=== PATIENT | male | born 1975 | race Caucasian/White ===

== ENCOUNTER 2019-10-16 10:51 | Emergency (ER) | payer BC, SELFPAY ==
[2019-10-16 10:52] VITALS: BP 152/111; PULSE 76; RESP 18; TEMP 36.4; O2SAT 100; BMI 28.1
--- NOTE | 2019-10-16 11:04 | ED_ITS ---
Entered by Erma Cortes, acting as scribe for HPI - Syncope General: Chief Complaint: General Medical Stated Complaint: blurred vision, light headed Time Seen by Provider: 10/16/19 11:08 Source: patient, family and EMS Mode of arrival: EMS Limitations: no limitations History of Present Illness: HPI narrative: 44 yo male presents with elevated blood pressure and tingling in bilateral hands. 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 pt was concerned he was having a stroke. pt had blurred vision in bialteral eyes. per spouse the pt noticed his blood pressure was high and the symptoms started and he has a history of anxiety.pt stated that sudden movement makes the dizziness worse and nothing makes this better. pt denies any other symptoms at this time. 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 ) Prodromal symptoms: vision changes and lightheaded Witnessed: Yes - by Other (spouse) Context: at rest, standing up and other (sudden movement) Injuries sustained associated with event: none Associated symptoms: Reports lightheadedness and other (tingling in bilateral hands, elevated blood pressure); Deny abdominal pain, fever(s), headache(s), nausea or vertigo Treatments prior to arrival: none Review of Systems Const: Denies: fever, chills, body aches, fatigue, malaise or night sweats ENMT: Denies: throat pain, oral sores/lesions, dental pain, nasal discharge or nasal congestion Card: Reports: lightheadedness Resp: Denies: shortness of breath, productive cough, non-productive cough or wheezing GI: Denies: abdominal pain, nausea, vomiting, vomiting blood, coffee grounds in vomit, difficulty swallowing, heartburn/indigestion, diarrhea, constipation, cramping, blood in stool or black tarry stool : Denies: flank pain, difficulty urinating, painful urination, urinary frequency, urinary urgency, urinary incontinence or blood in urine Musc: Denies: neck pain, back pain, extremity pain, extremity swelling, joint pain or joint swelling Skin/Breast: Denies: rash, itching or redness Neuro: Denies: headache, numbness in extremities, weakness in extremities, changes in sensation, lack of coordination, difficulty walking, frequent falls, vertigo or confusion Psych: Denies: depression, loss of interest, visual hallucinations, auditory hallucinations, suicidal ideation or homicidal ideation Endo: Denies: excessive urination, excessive thirst, tired all the time or cold intolerance Jerome/Lymph: Denies: easy bruising, easy bleeding, petechiae, enlarged lymph nodes or tender lymph nodes PFSH ED PFSH: Statuses (acute, chronic, etc) shown below reflect problem list status as previously entered and may not be historically accurate Social History (Updated 10/16/19 @ 09:27 by Leona Chris LPN) Smoking and tobacco status: former smoker Second hand smoke exposure: No Smoking risk assessment/counseling performed?: No Alcohol intake: never Desire information about alcohol rehabilitation?: No Counseling given: No Desire information about substance/drug rehabilitation?: No Counseling given: No Physical Exam Const: COMMON NORMALS: average body habitus, oriented x3 and alert GENERAL APPEARANCE: cooperative, comfortable, well kempt and well developed NUTRITIONAL APPEARANCE: obese ORIENTATION/CONSCIOUSNESS: Yes awake, Yes oriented to person and Yes oriented to place HENMT: COMMON NORMALS: normocephalic, head/scalp atraumatic, EAC's normal, TM's normal bilaterally, external nose normal, moist oral mucous membranes and oropharynx normal HEAD & SCALP: normocephalic and atraumatic NOSE: external nose normal EXTERNAL AUDITORY CANAL: EAC's normal TYMPANIC M EMBRANE: TM's normal bilaterally MOUTH: oral and palatal mucosa normal, lip normal and tongue normal THROAT: posterior oropharynx normal and tonsils normal Eye: COMMON NORMALS: PERRL, EOMs intact bilaterally, conjunctivae normal and no scleral icterus CONJUNCTIVA: Yes conjunctivae normal PUPIL: Yes PERRL Neck/C-Spine: COMMON NORMALS: full ROM, no lymphadenopathy, supple, no meningeal signs and thyroid normal THYROID: thyroid normal and asymmetrical Lymph: LYMPHATIC: no lymphadenopathy noted Resp: COMMON NORMALS: normal respiratory effort, no retractions, no use of accessory muscles and clear to auscultation bilaterally AUSCULTATION: clear to auscultation bilaterally Cardio: COMMON NORMALS: regular rate and regular rhythm RATE: regular rate RHYTHM: regular rhythm HEART SOUNDS: no murmurs GI: COMMON NORMALS: normal to inspection, nondistended, normoactive bowel sounds, soft to palpation and no hepatosplenomegaly PALPATION: Yes soft and Yes no hepatosplenomegaly : COMMON NORMALS: Yes no CVA tenderness BLADDER/KIDNEY EXAM: Yes no CVA tenderness Back/Pelvis: COMMON NORMALS: no CVA tenderness LUMBAR SPINE/LOWER BACK: Yes normal to inspection Extremity: COMMON NORMALS: no clubbing, cyanosis or edema, no calf tenderness and no pedal edema Neuro: COMMON NORMALS: oriented x3 SENSORIUM/ORIENTATION: Yes alert, Yes oriented to person and Yes oriented to place MENINGEAL SIGNS: Yes no meningeal signs Psych: APPEARANCE: Yes well kempt Skin: COMMON NORMALS: no rashes or lesions noted and skin turgor normal GENERAL SKIN EXAM: no rashes or lesions noted and turgor normal Course ED course: Reviewed findings with the patient. He has no focal on exam neurologic deficits. His blood pressure is essentially normal at this point I would recommend adding changing any of his medications. Recommend he follow-up with his primary care doctor they can consider further evaluation such as carotid echo or MRI of the head do recommend baby aspirin daily Vital Signs: Vital signs: Vital Signs Temperature 97.6 F 10/16/19 10:52 Pulse Rate 75 10/16/19 14:42 Respiratory Rate 16 10/16/19 14:42 Blood Pressure 120/88 10/16/19 14:42 Pulse Oximetry 97 10/16/19 14:42 MDM - Syncope Lab Data: Labs: Lab Results 10/16/19 10/16/19 10/16/19 Range/Units 11:28 11:28 11:28 WBC 10.8 H (4.0-10.0) 10^3/ uL RBC 5.63 H (4.1-5.3) 10^6/u L Hgb 16.1 (11.7-16.6) g/dL Hct 46.1 (42.0-52.0) % MCV 81.9 (80-94) fL MCH 28.6 (28.0-34.0) pg MCHC 34.9 (30.0-36.0) g/dL RDW 12.5 (12.1-15.1) % Plt Count 323 (130-400) 10^3/c mm MPV 9.7 (7.4-10.4) fL Neut % (Auto) 76.5 % Lymph % (Auto) 16.5 % Major % (Auto) 6.0 % Eos % (Auto) 0.3 % Baso % (Auto) 0.4 % Neut # (Auto) 8.2 H (1.8-7.7) 10^3/u L Lymph # (Auto) 1.8 (0.8-4.8) 10^3/u L Major # (Auto) 0.7 (0.2-0.9) 10^3/u L Eos # (Auto) 0.0 (0.0-0.8) 10^3/u L Baso # (Auto) 0.0 (0.0-0.1) 10^3/u L Nucleated RBC % (a uto) 0 % Nucleated RBCs # 0.0 /100WBC Sodium 139 (136-145) mmol/L Potassium 4.0 (3.5-5.1) mmol/L Chloride 103 (98-107) mmol/L Carbon Dioxide 21 L (22-29) mmol/L Anion Gap 19.0 (5-19) BUN 16 (6-20) mg/dL Creatinine 1.0 (0.7-1.2) mg/dL GFR Calculation 80.4 L (90-130) mL/min Glucose 129 H (74-109) mg/dL Calcium 11.1 H (8.6-10.0) mg/Dl Total Bilirubin 1.1 (0.15-1.2) mg/dL AST 32 (0-40) U/L ALT 44 H (0-41) U/L Alkaline Phosphata se 74 (40-130) IU/L Troponin T Baselin e 13 (0-15) ng/mL Troponin T 120 Min [place] (0-15) ng/mL Delta Troponin T (0-10) ABS# Total Protein 7.6 (6.6-8.7) g/dL Albumin 5.4 H (3.5-5.2) g/dL Globulin 2.2 (1.3-4.6) g/dL 10/16/19 Range/Units 13:18 WBC (4.0-10.0) 10^3/ uL RBC (4.1-5.3) 10^6/u L Hgb (11.7-16.6) g/dL Hct (42.0-52.0) % MCV (80-94) fL MCH (28.0-34.0) pg MCHC (30.0-36.0) g/dL RDW (12.1-15.1) % Plt Count (130-400) 10^3/c mm MPV (7.4-10.4) fL Neut % (Auto) % Lymph % (Auto) % Major % (Auto) % Eos % (Auto) % Baso % (Auto) % Neut # (Auto) (1.8-7.7) 10^3/u L Lymph # (Auto) (0.8-4.8) 10^3/u L Major # (Auto) (0.2-0.9) 10^3/u L Eos # (Auto) (0.0-0.8) 10^3/u L Baso # (Auto) (0.0-0.1) 10^3/u L Nucleated RBC % (a uto) % Nucleated RBCs # /100WBC Sodium (136-145) mmol/L Potassium (3.5-5.1) mmol/L Chloride (98-107) mmol/L Carbon Dioxide (22-29) mmol/L Anion Gap (5-19) BUN (6-20) mg/dL Creatinine (0.7-1.2) mg/dL GFR Calculation (90-130) mL/min Glucose (74-109) mg/dL Calcium (8.6-10.0) mg/Dl Total Bilirubin (0.15-1.2) mg/dL AST (0-40) U/L ALT (0-41) U/L Alkaline Phosphata se (40-130) IU/L Troponin T Baselin e (0-15) ng/mL Troponin T 120 Min [place] 10.97 (0-15) ng/mL Delta Troponin T -2.03 L (0-10) ABS# Total Protein (6.6-8.7) g/dL Albumin (3.5-5.2) g/dL Globulin (1.3-4.6) g/dL Imaging Data^: CT Head: Radiologist's impression: [address] [address] [address] Scan Report Signed Patient: Mj Tan #: [id number] : 1975Acct#:[id number] Age/Sex: 44 / MADM Date: 10/16/19 Loc: ERRoom/Bed: Attending Dr: Ordering Provider/Ordering MD: Toby Medina DO Date of Service: 10/16/19 Procedure(s): CT head wo con* [id number] Accession Number(s): [id number] Report Number: [id number] WS: [id number] CT HEAD TECHNIQUE: Noncontrast CT of the head obtained from the skullbase to the vertex. CLINICAL INFORMATION: facial numbness, arm numbness COMPARISON: DLP: 785.[address] scans at [facility] use at least one of these dose optimization techniques: automated exposure control; mA and/or kV adjustment per patient size (includes targeted exams where dose is matched to clinical indication); or iterative reconstruction. FINDINGS: No evidence of intracranial hemorrhage or mass effect. Ventricular system and basal cisterns are patent. No extra-axial fluid collections. No evidence of mass or mass effect. Normal gil-white differentiation. Paranasal sinuses and mastoid air cells are well aerated. . 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 Notified Toby Medina DO at 10/16/2019 1:[address]/CT head wo con* [id number] IMPRESSION: 1. No evidence of intracranial hemorrhage or mass effect. 2. No acute intracranial findings. Dictated By:Brayan Farah MD Signed By:Brayan Farah MDSigned Date/Time:10/16/19 1305 DD/ 1300 CXR: Radiologist's impression: [place] [address] XRay Report Signed Patient: Mj Tan #: [id number] : 1975Acct#:[id number] Age/Sex: 44 / MADM Date: 10/16/19 Loc: ERRoom/Bed: Attending Dr: Ordering Provider/Ordering MD: Toby Medina DO Date of Service: 10/16/19 Procedure(s): XR chest 1V portable [id number] Accession Number(s): [id number] Report Number: [id number] WS: [id number] Portable AP upright chest, 10/16/2019 Clinical Data: Syncope Comparison: Portable chest, 08/23/2019. Findings: No nodules, masses or effusions are seen. The heart is normal. The pulmonary vascularity is not increased. No pneumonia or pneumothorax is seen. XR/XR chest 1V portable [id number] Impression: Negative chest. Dictated By:Pau Otto MD Signed By:Pau Otto MDSigned Date/Time:10/16/19 1308 Discharge Plan Discharge Patient Disposition: Home, Self-Care Clinical Impression: Cervico-occipital neuralgia of right side, Benign essential HTN Condition: Stable Prescriptions: No Action clonidine HCl 0.1 mg tablet 0.1 mg PO DAILY PRN (Reason: Blood Pressure) RF: 0 paroxetine HCl 10 mg tablet See Rx Instructions .ROUTE .COMPLEX RF: 0 atorvastatin 20 mg tablet 20 mg PO DAILY RF: 0 amlodipine 10 mg tablet 10 mg PO DAILY RF: 0 pantoprazole 40 mg tablet,delayed release (DR/EC) 40 mg PO DAILY RF: 0 metoprolol tartrate 50 mg tablet 75 mg PO BID RF: 0 Vitamin D2 50,000 unit capsule 50,000 unit PO Q7D RF: 0 multivitamin Capsule 1 cap PO DAILY RF: 0 Discharge Orders: Discharge Order (Routine); Ordered 10/16/19 Ordered By: Toby Medina Referrals: Debbie Duncan FNP [Family Provider] - La Coreas FNP [Primary Care Provider] - Discharge Diet: Low Cholesterol Discharge Activity: Increase activity as tolerated Activity Restrictions/Additional Instructions: Follow-up with your primary care provider for reevaluation of blood pressure. Discharge Date/Time: 10/16/19 14:44 Coding Level of Care Code ED Mva Operator for Chg Fwd Exam Problem Focused NIH stroke score NIHSS Level Of Consciousness - 1a: 0 Level Of Consciousness Questions - 1b: Both Correct Level Of Consciousness Commands - 1c: Both Correct Best Gaze - 2: Normal Visual Singleton - 3: No Visual Loss Facial Palsy - 4: Normal Motor Arm Right - 5: No Drift Motor Arm Left - 5: No Drift Motor Leg Right - 6: No Drift Motor Leg Left - 6: No Drift Limb Ataxia - 7: Absent Sensory - 8: Normal Best Language - 9: No Aphasia Dysarthia - 10: Normal Extinction And Inattention - 11: 0 Score Total Score: 0 The documentation recorded by the Sebastian hagen Bridget Annette, accurately reflects the service I personally performed and the decisions made by , Toby Medina, Oct 16, 2019 10:51
--- NOTE | 2019-10-16 11:08 | ECG_ITS ---
Measurements Intervals [place] Rate: 76 P: 52 NM: 173 QRS: 23 QRSD: 106 T: 49 QT: 388 QTc: 439 SINUS RHYTHM Compared to ECG 08/23/2019 12:39:18 Sinus arrhythmia no longer present Electronically Signed On 10-16-2019 19:27:22 ORACLE ADF CONSULTANT by Miguel Valentine M.D. [id number]
--- NOTE | 2019-10-16 11:08 | XR_ITS ---
WS: [id number] Portable AP upright chest, 10/16/2019 Clinical Data: Syncope Comparison: Portable chest, 08/23/2019. Findings: No nodules, masses or effusions are seen. The heart is normal. The pulmonary vascularity is not increased. No pneumonia or pneumothorax is seen. XR/XR chest 1V portable [id number] Impression: Negative chest.
--- NOTE | 2019-10-16 11:11 | PC.NURSE ---
Orthostatic Vital Signs Blood Pressure Standing-135/90 Heart Rate Standing-74 Blood Pressure Sitting- 136/102 Heart Rate Sitting-81 Blood Pressure Standing- 126/101 Heart Rate Standing- 82 Pt. experienced a little bit of dizziness sitting up but overall did well.
--- NOTE | 2019-10-16 11:20 | CT_ITS ---
WS: [id number] CT HEAD TECHNIQUE: Noncontrast CT of the head obtained from the skullbase to the vertex. CLINICAL INFORMATION: facial numbness, arm numbness COMPARISON: DLP: 785.[address] scans at [facility] use at least one of these dose optimization techniques: automat ed exposure control; mA and/or kV adjustment per patient size (includes targeted exams where dose is matched to clinical indication); or iterative reconstruction. FINDINGS: No evidence of intracranial hemorrhage or mass effect. Ventricular system and basal cisterns are massey nt. No extra-axial fluid collections. No evidence of mass or mass effect. Normal gil-white different iation. Paranasal sinuses and mastoid air cells are well aerated. . 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 Notified Toby Medina DO at 10/16/2019 1:[address]/CT head wo con* [id number] IMPRESSION: 1. No evidence of intracranial hemorrhage or mass effect. 2. No acute intracranial findings.
[2019-10-16 11:28] VITALS: BP 126/101; BP 135/90; BP 136/102; PULSE 74; PULSE 81; PULSE 82
[2019-10-16 11:40] LABS: Basophils % 0.4 %; Eosinophils % 0.3 %; Hematocrit 46.1 % (42.0-52.0); Hemoglobin 16.1 g/dL (11.7-16.6); Lymphocytes # 1.8 10^3/uL (0.8-4.8); Lymphocytes % 16.5 %; Mean Corpuscular HGB Conc 34.9 g/dL (30.0-36.0); Mean Corpuscular Hemoglobin 28.6 pg (28.0-34.0); Mean Corpuscular Volume 81.9 fL (80-94); Mean Platelet Volume 9.7 fL (7.4-10.4); Monocytes # 0.7 10^3/uL (0.2-0.9); Neutrophils # 8.2 10^3/uL (1.8-7.7); Neutrophils % 76.5 %; Nucleated Red Blood Cells % 0 %; Platelet Count 323 10^3/cmm (130-400); Red Blood Count 5.63 10^6/uL (4.1-5.3); Red Cell Distribution Width 12.5 % (12.1-15.1); White Blood Count 10.8 10^3/uL (4.0-10.0)
[2019-10-16 11:50] LABS: Alanine Aminotransferase 44 U/L (0-41); Albumin Level 5.4 g/dL (3.5-5.2); Alkaline Phosphatase 74 IU/L (40-130); Aspartate Amino Transferase 32 U/L (0-40); Blood Urea Nitrogen 16 mg/dL (6-20); Calcium 11.1 mg/Dl (8.6-10.0); Carbon Dioxide 21 mmol/L (22-29); Chloride 103 mmol/L (98-107); Globulin 2.2 g/dL (1.3-4.6); Glomerular Filtration Rate 80.4 mL/min (90-130); Glucose 129 mg/dL (74-109); Sodium 139 mmol/L (136-145); Total Bilirubin 1.1 mg/dL (0.15-1.2); Total Protein 7.6 g/dL (6.6-8.7)
[2019-10-16 11:53] LABS: Troponin(5th) Baseline 13 ng/mL (0-15)
[2019-10-16 13:42] LABS: Troponin 5 2HR 10.97 ng/mL (0-15)
[2019-10-16 13:44] LABS: Troponin 5 2HR Delta -2.03 ABS# (0-10)
--- NOTE | 2019-10-16 14:20 | PC.NURSE ---
EMD at bedside
[2019-10-16 14:33] VITALS: RESP 14
[2019-10-16] MEDS: morphine 4 mg/mL SDV 1 mL 2 MG IM (14:33)
[2019-10-16] MEDS: promethazine 25 mg/mL SDV 1 mL 12.5 MG IM (14:34)
[2019-10-16 14:42] VITALS: BP 120/88; PULSE 75; RESP 16; O2SAT 97
--- NOTE | 2019-10-16 17:08 | ECG_ITS ---
Measurements Intervals [place] Rate: 83 P: 41 NM: 165 QRS: 15 QRSD: 110 T: 38 QT: 389 QTc: 458 SINUS RHYTHM Compared to ECG 08/23/2019 12:39:18 Sinus arrhythmia no longer present Electronically Signed On 10-16-2019 19:34:04 CONTINUOUS IMPROVEMENT MANAGER by Miguel Valentine M.D. [email or web address]
== END 2019-10-16 14:44 | disposition home or self-care (01) ==
PROVIDERS: Emergency Provider Family Medicine; Family Provider Nurse Practitioner; PCP Nurse Practitioner Family
DX: M54.81 Occipital neuralgia (principal); I10 Essential (primary) hypertension; Z87.891 Personal history of nicotine dependence
CPT/HCPCS: 36415; 70450; 71045; 80053; 84484; 85025; 93005; 96372; 99282; J2270; J2550

== ENCOUNTER 2019-10-24 07:58 | Outpatient (CLI) | payer BC, SELFPAY ==
--- NOTE | 2019-10-24 09:33 | ECG_ITS ---
NAME OF STUDY: LEXISCAN SESTAMIBI STRESS TEST INDICATION: Chest Pain, PROCEDURE: At the baseline, the EKG revealed sinus bradycardia with a normal ST-T's. The baseline blood pressure was 136/92 mm Hg with a heart rate of 55 beats/min. Lexiscan was infused over a period of 20 seconds. A total of 0.4 milligrams of Lexiscan was infused. The stress phase was continued for a total of 5 minutes. Heart rate at the end of the stress phase was 83 with a blood pressure 121/92. The EKG at the peak infusion revealed no significant changes. Sestamibi was injected 20 seconds after the Lexiscan infusion. Blood pressure at the end of the recovery phase was 120/92 with a heart rate of 73 per minute. CONCLUSION: 1. No significant EKG changes with the LexiScan infusion 2. No LexiScan induced chest pain or cardiac arrhythmia 3. Normal blood pressure and heart rate response 4. Sestamibi/sestamibi perfusion scan pending; see separate report. Electronically Signed On 10-24-2019 22:23:32 LOCK AND DAM OPERATOR by Miguel Valentine M.D. [email or web address]
--- NOTE | 2019-10-24 09:33 | NMCV_ITS ---
NM sandra perf SPECT r/s* [id number] Mj Tan Age: 44 Gender: M : 1975 Exam Date: 10/24/2019 09:48 Ordering Phys: La Coreas APRN Technologist: ADONAY Rogers Exam Location: [facility] Indications: Chest pain STRESS TEST Please see separate stress test report in [facility] for full findings IMAGE PROTOCOL Rest/Stress 1 Lexiscan Day Radiopharmaceutical Dose (mCi) Administration Site Administered by Rest: Tc-99m 10.5 IV ADONAY Vicente Sestamibi Stress:Tc-99m 32.9 IV ADONAY Rogers Sestamibi Rest: 24-Oct-2019 60 Discovery 630 Stress: 24-Oct-2019 60 Discovery 630 0.4mg Lexiscan. Images obtained in supine and prone position. SPECT RESULTS Technical Quality: Excellent Raw Data Analysis: Normal Image Corrections: No attenuation or motion correction applied Summed Stress Score: 0 Summed Rest Score: 1 Summed Difference Score: 0 PERFUSION FINDINGS A small area of decreased uptake was noted in the basal, mid and apical inferior wall region, with no significant reversibility FUNCTIONAL RESULTS (calculated via Gated SPECT) Stress Image LV EF (%): 64 Stress EDV (mL):115 TID: 1.01 Stress ESV (mL):41 FUNCTIONAL FINDINGS: Segmental wall motion analysis revealing no gross wall motion normalities IMPRESSIONS 1. Myocardial perfusion imaging revealing a small area of persistent decreases uptake in inferior wall region, suggestive of myocardial scarring versus attenuation artifact. 2. Normal LV ejection fraction 64%. 3. LV wall motion analysis revealing no gross wall motion normalities. 4. Normal LV volume. No significant coronary ischemia, based on the above findings Dr Miguel Valentine MD FACC (Electronically Signed) Final Date: 24 October 2019 23:29 S
[2019-10-24 09:35] VITALS: BMI 27.4
[2019-10-24] MEDS: regadenoson 0.4 Mg/5 ml Syringe IVP (10:31)
[2019-10-24 10:35] VITALS: BP 125/88; PULSE 90
== END 2019-10-24 07:59 | disposition home or self-care (01) ==
PROVIDERS: Family Provider Nurse Practitioner; PCP Nurse Practitioner Family; Visit Provider Nurse Practitioner Family
DX: R07.9 Chest pain, unspecified (principal)
CPT/HCPCS: 78452; 93017; A9500; J2785

== ENCOUNTER 2019-11-09 08:32 | Outpatient (CLI) | payer BC, SELFPAY ==
--- NOTE | 2019-11-09 08:45 | MR_ITS ---
WS: [id number] MRI BRAIN WITH AND WITHOUT CONTRAST HISTORY: numbness and tingling with headache COMPARISON: CT head 10/16/2019 TECHNIQUE: Multiplanar imaging performed through the brain with Prohance 16 ml's IV. No acute infarcts are seen. Macias-white matter differentiation is well preserved. Prominent perivascul ar space along the inferior RIGHT basal ganglia. There are several small subcortical and bilateral wh ite matter signal abnormalities. Slightly greater distribution in the RIGHT subcortical white matter. Slightly more than expected for the patient's age. Not a distribution to suggest demyelinating disea se. No susceptibility artifacts or prior lacunar infarcts. Ventricles and extra-axial spaces are normal. Clivus and pituitary gland are normal. Visualized posterior fossa and brainstem are also normal. Postcontrast images are negative for masses or vascular malformations. Tortuous vertebral arteries. N o aneurysms or stenosis. Dural venous sinuses are normal. Paranasal sinuses: Well aerated with no significant disease. Mastoid air cells: Normal. Calvarium and scalp: Normal. MR/MR head wo/w con [id number] IMPRESSION: 1. No acute or subacute infarcts or masses. 2. Mild chronic microvascular ischemic changes in the supratentorial white mat ter. Slightly more than expected for the patient's age. Not a typical distribut ion for demyelination.
== END 2019-11-09 08:33 | disposition home or self-care (01) ==
LOC: RADSHAW 08:37
PROVIDERS: Family Provider Nurse Practitioner; PCP Nurse Practitioner Family; Visit Provider Nurse Practitioner Family
DX: R20.0 Anesthesia of skin (principal); R51 Headache
CPT/HCPCS: 70553; A9579

== ENCOUNTER → 2021-05-08 12:05 | Outpatient (BNVA) | payer BC, SELFPAY | PROVIDERS: Family Provider Nurse Practitioner; PCP Nurse Practitioner Family; Visit Provider Nurse Practitioner Family | DX: Z20.822 Contact with and (suspected) exposure to COVID-19 (principal); J01.40 Acute pansinusitis, unspecified | CPT/HCPCS: 87635 ==

== ENCOUNTER → 2023-02-10 13:28 | Outpatient (BNVA) | payer OTHER, SELFPAY | PROVIDERS: Family Provider Nurse Practitioner; PCP Nurse Practitioner; Visit Provider Nurse Practitioner | DX: M25.512 Pain in left shoulder (principal) | CPT/HCPCS: 73030 ==

== ENCOUNTER 2024-01-31 09:39 | Outpatient (CLI) | payer OTHER, SELFPAY | END 2024-01-31 09:40 | disposition home or self-care (01) | LOC: SPT 09:39 | PROVIDERS: Family Provider Nurse Practitioner; PCP Nurse Practitioner; Visit Provider Podiatrist Foot & Ankle Surgery | DX: Z46.89 Encounter for fitting and adjustment of other specified devices (principal); M79.671 Pain in right foot | CPT/HCPCS: 97760; L4361 ==

== ENCOUNTER 2024-02-02 12:11 | Outpatient (CLI) | payer OTHER, SELFPAY ==
--- NOTE | 2024-02-02 12:15 | MR_ITS ---
WS: [id number] MRI RIGHT FOOT WITHOUT CONTRAST. COMPARISON: Radiograph 01/26/2024 Multiplanar, multisequence imaging is performed without contrast. Nondisplaced oblique fracture mid diaphysis second metatarsal. There is a large amount of edema surro unding the metatarsals throughout the midfoot. No additional fracture. No additional marrow edema. Th e central band of the Lisfranc ligament is intact. There is a small amount of edema involving the med ial base of the first metatarsal. This edema separate from the Lisfranc ligament. There is no widenin g at the tarsometatarsal articulation. Mild osteoarthritic changes along the tarsal metatarsal articulation. MR/MR foot RT wo con* [id number] IMPRESSION: 1. The Lisfranc ligament appears intact. There is no lateral displacement of the second metatarsal relative to the middle cuneiform. Mild midfoot sprain. 2. Small amount of marrow edema involving the medial base of the first metatar shashank. Tiny avulsion fracture may be present. This is separate from the Lisfranc ligament. 3. Nondisplaced, oblique fracture middle diaphysis second metatarsal with a la rge amount of adjacent soft tissue injury.
== END 2024-02-02 12:12 | disposition home or self-care (01) ==
LOC: RAD 12:12
PROVIDERS: Family Provider Nurse Practitioner; PCP Nurse Practitioner; Visit Provider Podiatrist Foot & Ankle Surgery
DX: S93.324A Dislocation of tarsometatarsal joint of right foot, initial encounter (principal); S92.324A Nondisplaced fracture of second metatarsal bone, right foot, initial encounter for closed fracture; X58.XXXA Exposure to other specified factors, initial encounter
CPT/HCPCS: 73718

== ENCOUNTER → 2024-03-14 09:21 | Outpatient (BNVA) | payer OTHER, SELFPAY | PROVIDERS: Family Provider Nurse Practitioner; PCP Nurse Practitioner; Visit Provider Physician Assistant | DX: M75.42 Impingement syndrome of left shoulder | CPT/HCPCS: 73030 ==

== ENCOUNTER → 2024-06-27 08:28 | Outpatient (BNVA) | payer OTHER, SELFPAY | PROVIDERS: Family Provider Nurse Practitioner; PCP Nurse Practitioner; Visit Provider Physician Assistant | DX: M25.522 Pain in left elbow; M19.022 Primary osteoarthritis, left elbow; M77.12 Lateral epicondylitis, left elbow | CPT/HCPCS: 73080 ==

== ENCOUNTER 2024-07-18 07:16 | Outpatient (CLI) | payer OTHER, SELFPAY ==
--- NOTE | 2024-07-18 07:15 | MR_ITS ---
WS: [id number] MRI LEFT SHOULDER NONCONTRAST TECHNIQUE: Sagittal T2, coronal T1, T2 and proton density imaging. Axial gradient PDE imaging. CLINICAL INFORMATION: Left shoulder rotator cuff COMPARISON: None. FINDINGS: Moderate to advanced degenerative arthritis AC joint with fluid and edema. Mild downsloping acromion with subacromial spurring. Impingement on the distal supraspinatus. Tendinopathy distal supraspinatus with a tiny insertional tear. Tendinopathy infraspinatus. Small amount of subacromial and subdeltoid fluid. Normal teres minor. Subscapularis tendon appears intact. Normal biceps tendon in the bicipital groove . Intra-articular biceps tendon appears intact. Biceps labral anchor appears intact. Moderate degener ative narrowing of the glenohumeral articulation. Glenoid labrum appears grossly intact. Normal bone marrow signal in the humerus and glenoid. MR/MR shoulder LT wo con* [id number] IMPRESSION: 1. Moderate to advanced arthritis AC joint with mild downsloping acromion with subacromial spurring. Impingement distal supraspinatus. Subacromial subdeltoid fluid. 2. Tendinopathy supraspinatus and infraspinatus. Small insertional tear distal supraspinatus. 3. Biceps tendon appears intact within the bicipital groove. Intra-articular b iceps tendon appears intact. 4. Moderate degenerative narrowing of the glenohumeral articulation.
== END 2024-07-18 07:17 | disposition home or self-care (01) ==
PROVIDERS: PCP Nurse Practitioner; Visit Provider Physician Assistant
DX: M19.012 Primary osteoarthritis, left shoulder (principal); M75.42 Impingement syndrome of left shoulder; M75.92 Shoulder lesion, unspecified, left shoulder; M75.112 Incomplete rotator cuff tear or rupture of left shoulder, not specified as traumatic
CPT/HCPCS: 73221

== ENCOUNTER 2024-09-20 13:57 | Day surgery (SDC) | payer OTHER, SELFPAY ==
[2024-09-20] VITALS (9 sets, daily range): BP systolic 114–146; BP diastolic 85–116; PULSE 74–100; RESP 16–18; TEMP 36.1–36.7; O2SAT 94–100; BMI 27.3
[2024-09-20] MEDS: sodium chloride 0.9% 1,000 ML 30 ML IV (14:25)
[2024-09-20] MEDS: ketorolac 30 mg/mL INJ IVP (14:25)
[2024-09-20] MEDS: acetaminophen 1,000 MG/100 ML PIGGYBACK 400 MG IV (14:26)
[2024-09-20] MEDS: scopolamine 1.5 Patch 1 PATCH TRANSDERMA (14:39)
--- NOTE | 2024-09-20 14:52 | SUR.PREOP ---
1435-Interscalene block was completed in ops by Dr Merlos using 20ml 0.5% Ropivicaine with 4mg Decadron
--- NOTE | 2024-09-20 14:56 | ANES.PREANE2 ---
Pre-Anesthetic Assessment Height/Weight: Height 1.75 m Weight 83.915 kg Temp Pulse Resp BP Pulse Ox O2 Del Method 98.0 F 74 16 140/101 97 Room Air 09/20/24 14:11 09/20/24 14:11 09/20/24 14:11 09/20/24 14:11 09/20/24 14:11 09/20/24 14:13 Operation Date: 09/20/24 15:30 Proposed Procedures p shoulder diagnostic and surgical arthroscopy with AC joint resection(Left) - Felipe Puentes, DO s Subacromial Decompression(Left) - Felipe Jansenatt DO s Rotator Cuff debridement versus repair(Left) - Felipe Jansenatt DO s possible biceps tenodesis(Left) - Felipe Puentes DO Familial anesthetic complications: None Was Beta Paige taken within 24 hours: N/A Was Clonidine taken within 24 hours: N/A Last intake: Intake Last Liquid Date 09/20/24 Last Liquid Time 10:00 Last Solid Date 09/19/24 Last Solid Time 20:00 Social No alcohol and No tobacco Exam alert, oriented x 3, clear to auscultation bilaterally and regular rate & rhythm Airway Mallampati: Class II Dentition: full CV/HEM Hypertension Anesthetic Plan ASA status: 2 Anesthesia: General and Regional (specify below) Risk of > 500 ml blood loss (7ml/kg in children): No Medications/Allergies Home Medications Medication Instructions Recorded Confirmed Last Taken Type atorvastatin 20 mg tablet 20 mg PO DAILY 10/16/19 09/19/24 09/19/24 History ergocalciferol (vitamin D2) 1,250 50,000 unit PO Q7D 10/16/19 09/19/24 08/29/24 History mcg (50,000 unit) capsule (Vitamin D2) metoprolol tartrate 50 mg tablet 50 mg PO BID 10/16/19 09/20/24 09/20/24 History amlodipine 10 mg tablet 10 mg PO DAILY #30 tabs 04/19/20 09/20/24 09/20/24 Rx diclofenac sodium 1 % topical gel 4 g topical QID #100 grams 06/15/24 09/20/24 09/19/24 Rx (Voltaren Arthritis Pain) meloxicam 15 mg tablet 15 mg PO DAILY #30 tabs 06/15/24 09/19/24 09/11/24 Rx pantoprazole 40 mg tablet,delayed 40 mg PO DAILY 09/19/24 09/19/24 09/19/24 History release hydrocodone 7.5 mg-acetaminophen 1 tab PO Q6H PRN pain #20 tabs 09/20/24 Unknown Rx 325 mg tablet ondansetron 4 mg disintegrating 4 mg PO Q8H PRN nausea and 09/20/24 Unknown Rx tablet vomiting 3 days #9 tabs Allergies Allergy/AdvReac Type Severity Reaction Status Date / Time pentazocine [From Lalita] Allergy Intermediate ALGY-Anaphy Verified 09/20/24 14:07 laxis Current Medications Generic Name Dose Route Start Last Admin Trade Name Freq PRN Reason Stop Dose Admin Sodium Chloride 1,000 mls @ 30 mls/hr 09/19/24 15:00 09/20/24 14:25 Sodium Chloride 0.9% IV 09/20/24 14:59 30 mls/hr .Q24H YAZMIN Administration PFSH Anesthesia Medical History Environmental and seasonal allergies Encounter for screening laboratory testing for COVID-19 virus Sinusitis Hypertension Social History Smoking and tobacco/nicotine status: former use of tobacco/nicotine Second hand smoke exposure: No Alcohol intake: never Substance/Drug Use: never Data Anesthesia Cardiac Studies: Sestamibi Stress Test (Cardiology) 10/24/19
--- NOTE | 2024-09-20 14:56 | ANES.PROC ---
Anesthesia Procedures Procedure/Date: 09/20/24 Nerve Block ^: Nerve Block 1: Main Anesthesia: general anesthesia Time Out Performed: Yes Consent: requested by attending/covering physician, from patient, from other, risks and benefits reviewed and patient agrees to proceed Nerve block location: interscalene (L) Anesthesia monitors applied: pulse oximetry, EKG, BP cuff and oxygen Nerve block position: semi sitting Anesthetic Used: ropivicaine 0.5% (20 cc) and with decadron (4 mg) Ultrasound used to: recognize landmarks, visualize and ID brachial plexus, in supraclavicular region and visualize and ID interscalene groove Nerve Stimulator Used?: No Interscalene/Femoral BLK: 2 stimuplex 22 g needle used for position and inplane approach, visualize local anesthetic spread and no vascular puncture identified Injection: neg aspiration of heme Patient Tolerated Procedure: well Complications: none
--- NOTE | 2024-09-20 15:38 | W.PM.OPSUD ---
Surgery/Procedure H&P Update DATE OF PROCEDURE: September 20, 2024 DATE H&P PERFORMED: 09/20/24 H&P UPDATE INFORMATION: I have reviewed H&P completed within last 30 days, I have examined patient prior to procedure and No changes to prior documentation PREOP DIAGNOSIS: Left shoulder AC joint arthritis, rotator cuff tear, biceps tendinitis PRIMARY INDICATION FOR PROCEDURE: Left shoulder AC joint arthritis, rotator cuff tear, biceps tendinitis, subacromial impingement PLANNED PROCEDURE: Operation Date: 09/20/24 15:30 Proposed Procedures p shoulder diagnostic and surgical arthroscopy with AC joint resection(Left) - DO maria l Austin Subacromial Decompression(Left) - DO maria l Austin Rotator Cuff debridement versus repair(Left) - DO maria l Austin possible biceps tenodesis(Left) - Felipe Puentes DO
[2024-09-20] MEDS: EPINEPHrine 1 mg/mL INJ 2 MG XX (20:35)
[2024-09-20] MEDS: ceFAZolin 2,000 mg SDV 2000 MG IVP (20:38)
--- NOTE | 2024-09-20 21:58 | P.BOP_ITS ---
Date of Procedure: 09/20/2024 Surgeon: Felipe Puentes DO Peer Financial Counselor(s): Warren Puentes PA-C Procedure(s) performed: Left shoulder diagnostic and surgical arthroscopy with supraspinatus tendon rotator cuff repair (small) Left shoulder diagnostic and surgical arthroscopy with biceps tenodesis Left shoulder diagnostic and surgical arthroscopy with labral debridement Left shoulder diagnostic and surgical arthroscopy with subacromial decompression (acromioplasty and bursectomy) Left shoulder diagnostic and surgical arthroscopy with AC joint resection (distal clavicle excision) Left shoulder diagnostic and surgical arthroscopy with subscapularis tendon rotator cuff repair Findings of the procedure(s): Underwent procedure as planned without issues or complications. Estimated blood loss: 10 mL Specimen(s) removed: None Post-operative diagnosis: Left shoulder supraspinatus rotator cuff tendon tear, left shoulder subscapularis tendon tear, biceps tendinitis with superior labral unstable bicep anchor and tearing, circumferential labral fraying, subacromial impingement, AC joint arthritis
--- NOTE | 2024-09-20 22:11 | PM.PACU ---
Documented by User: GABBY White 09/20/24 22:13 PACU note Narrative: Patient is a 49-year-old male who just underwent a left shoulder diagnosed surgical arthroscopy. Patient transferred to PACU in stable condition. Pain is well controlled. shoulder Dressing on , dry and in place. Patient's operative arm is in a shoulder immobilizer. Patient is awake and alert and able to respond to my questions accordingly. Patient's fingers are warm with good perfusion. Patient can wiggle his fingers. Normal cap refill under 2 seconds. Unable to assess further range of motion in arm due to sling. Unable to assess sensation due to residual spinal block. Exam: awake Disposition: discharged Documented by User: Felipe Puentes DO 09/20/24 22:17 PACU note Narrative: Patient is a 49-year-old male who just underwent a left shoulder diagnosed surgical arthroscopy. Patient transferred to PACU in stable condition. Pain is well controlled. shoulder Dressing on , dry and in place. Patient's operative arm is in a shoulder immobilizer. Patient is awake and alert and able to respond to my questions accordingly. Patient's fingers are warm with good perfusion. Patient can wiggle his fingers. Normal cap refill under 2 seconds. Unable to assess further range of motion in arm due to sling. Unable to assess sensation due to residual regional block.
[2024-09-20] MEDS: fentaNYL 50 mcg/mL INJ 2mL IVP (22:15)
[2024-09-20] MEDS: HYDROcodone-acetaminophen 7.5-325 mg Tablet 1 TAB PO (22:59)
--- NOTE | 2024-09-21 10:25 | P.OP_ITS ---
Operative Report Date of procedure: September 21, 2024 Surgeon: Felipe Puentes DO Hat Body Sorter: Warren Puentes PA-C: PA was necessary for assistance in this case with shoulder positioning to execute the procedure, assistance with instrumentation, as well as implant fixation when necessary, assist with wound closure and dressing application. Procedure: Preoperative diagnosis: Left shoulder AC joint arthritis, rotator cuff tear, biceps tendinitis Post-op diagnosis:? Left shoulder supraspinatus rotator cuff tendon tear, left shoulder subscapularis tendon tear, biceps tendinitis with superior labral unstable bicep anchor and tearing, circumferential labral fraying, subacromial impingement, AC joint arthritis Procedure done: Left shoulder diagnostic and surgical arthroscopy with supraspinatus tendon rotator cuff repair (small) Left shoulder diagnostic and surgical arthroscopy with biceps tenodesis Left shoulder diagnostic and surgical arthroscopy with labral debridement Left shoulder diagnostic and surgical arthroscopy with subacromial decompression (acromioplasty and bursectomy) Left shoulder diagnostic and surgical arthroscopy with AC joint resection (distal clavicle excision) Left shoulder diagnostic and surgical arthroscopy with subscapularis tendon rotator cuff repair Surgeon: Felipe Puentes DO Estimated blood loss: [10]mL IV fluids: See anesthesia record Implants: Arthrex bicep tenodesis loop and tack kit Arthrex 4.75 swivel lock Arthrex scorpion and suture tape Complications: None Condition: stable Disposition: same day Brief History: Patient been seen and worked up in the outpatient setting for Left?shoulder?pain.? Pt had an MRI which showed findings below.? Patient's failed conservative treatment and has weakness.? We talked about treatment options far as nonoperative and operative intervention..? We talked about risk benefits complication alternatives surgical nonsurgical treatment options.? Understanding risk of surgery pt agrees to proceed with surgical intervention.? All questions have been answered at this time.? Patient elects proceed with surgery for left shoulder diagnostic and surgical arthroscopy with AC joint resection, subacromial decompression, rotator cuff debridement versus repair, possible biceps tenodesisand consent obtained MR/MR shoulder LT wo con* [id number] IMPRESSION: 1. Moderate to advanced arthritis AC joint with mild downsloping acromion with subacromial spurring. Impingement distal supraspinatus. Subacromial subdeltoid fluid. 2. Tendinopathy supraspinatus and infraspinatus. Small insertional tear distal supraspinatus. 3. Biceps tendon appears intact within the bicipital groove. Intra-articular biceps tendon appears intact. 4. Moderate degenerative narrowing of the glenohumeral articulation. Procedure: Patient seen evaluated in the preoperative holding area.? Consent reviewed and signed with patient.? Once again reviewed patient's MRI results as well as? planned surgical intervention.? Correct extremity marked.? Patient seen evaluated by anesthesia department received regional anesthesia.? Once ready for surgery was taken back to the operative suite.? Patient then subsequently underwent anesthesia per the anesthesia department was transported onto the OR table.? Patient was then placed into a lateral decubitus position with a beanbag and was appropriately secured to the bed.? All bony prominences well-padded.? Patient then had the Left upper extremity was then prepped and draped in standard orthopedic fashion.? Patient received appropriate preoperative antibiotics.? Final timeout performed. The Left upper extremity was then held in hanging from traction utilizing sterile technique.? Next started with standard diagnostic and surgical arthroscopy with posterior portal position introduced arthroscope into the glenohumeral joint.? Visualized the glenohumeral joint I then introduced a spinal needle within the rotator cuff interval to confirm appropriate anterior portal placement.? Once this was confirmed I then made my small incision and then introduced my arthroscopic shaver into the glenohumeral joint.? After flushing the joint fluid, was clearly evident patient had biceps tendon tearing as well as Superior labral tear. Patient had appreciable unstable biceps anchor most pronounced in the superior labrum. Given there appears to be healthy intra-articular tendon plan was for an intra-articular biceps tenodesis at the superior portion as it enters the intertubercular groove. Thermal wand introduced into the rotator interval. I then release of the rotator interval to have appropriate visualization and the ability to perform biceps tenodesis. At this point in time I did visibly appreciate a tear of the upper third border of the subscapularis tendon and as a result my plan was to place a luggage tag Fiber tape suture to the upper border the subscapularis and incorporate this into the biceps tenodesis 4.75 swivel lock anchor. At this point I established a purple passport cannula which was introduced. Next I performed an Arthrex loop and tack biceps tenodesis. Passer was then made around the tendon luggage tag stitch around and then thru the tendon and around. I then utilized a thermal wand to release the biceps tendon at the anchor to perform with tenotomy. Next I proceeded with preparation of the subscapularis tendon I utilized a blunt probe to release any adhesions of the anterior and posterior aspects of the subscapularis tendon identified the upper border utilized a scorpion and passed a fiber tape in a luggage tag fashion with care to stay directly on just the upper border of the subscapularis tendon and then purchased this through once more and then loaded this suture into the 475 swivel lock with the bicep tenodesis suture. I then loaded all sutures onto an Arthrex 4.75 swivel lock suture anchor. A punch was then placed in appropriate position at the entry point into the intertubercular groove just superior to the subscapularis tendon. Punch was then introduced to the appropriate depth. The suture loaded on the swivel lock was then advanced held under appropriate tension and shoulder lock anchor was then advanced and had excellent fixation. Excess suture was then cut biceps tenodesis was complete. I then utilized a thermal wand to seal the edges of the superior labrum. ?Next there was significant labral tearing at biceps anchor and circumferential.? ? I then subsequently utilized a a arthroscopic shaver and thermal wand to perform a labral debridement.? This point time I then visualized the glenohumeral joint.? The glenohumeral joint was found to have grade 2 chondromalacia throughout.? Axillary pouch was free of loose bodies from viewing the posterior portal.? Next a visualized the rotator cuff superiorly and there was found to be a small undersurface tearing of the supraspinatus tendon.? I utilized a spinal needle to candice this location.? ?This completed my work within the glenohumeral joint all fluid was suctioned free of the joint.? ?Next I reintroduced the arthroscope posteriorly.? And went to the subacromial space.? I established my lateral working portal at the site of which my spinal needle was marking of the rotator cuff tear.? Thermal wand was then introduced laterally and then I subsequently performed extensive bursectomy of the subacromial space.? Patient had a large anterior bone spur.? At this point time I proceeded with my AC joint resection thermal wand was used and track to the anterior edge of the acromion and then tracked all the way to the AC joint.? Once identified the AC joint this was very arthritic in nature.? Thermal wand was placed anteriorly to establish appropriate plane for AC joint resection.? Once appropriate margins and anterior inferior and anterior capsule was released I then introduced arthroscopic shaver and a bur and performed AC joint resection of both the acromion to cope plane at the AC joint and a distal clavicle resection was then performed totaling 1 cm in size and was confirmed.? This completed my AC joint resection and I then introduced the arthroscopic shaver laterally while continuing to view posteriorly.? I then performed an acromioplasty to complete my subacromial decompression prior to fixing the rotator cuff tear.? Next the arthroscopic shaver was then used previous spinal needle spot that is marked the small hole in the rotator cuff this was consistent with a small full- thickness tear.? Given the small size this did not need a medial and lateral row configuration as result my plan was for a horizontal mattress stitch with a single lateral row anchor.? As result I loaded and Arthrex scorpion with 2 fiber tapes and subsequently passed these.? A horizontal mattress purchase appropriately spaced to the small tear of the supraspinatus tendon utilizing the 2 suture strands having a total of 4 strands coming to a single lateral row anchor..? At this point in time and then introduced a shaver to debride the rotator cuff footprint and decorticate the footprint in preparation for repair, next I marked by swivel lock position.? Fiber tape was then loaded into a 4.75 swivel lock I then subsequently punched and then subsequently placement 4.75 swivel lock while maintaining appropriate tension and repair of rotator cuff and this was advanced with excellent fixation I then had a final confirmation of appropriate repair of the supraspinatus rotator cuff tendon tear.? Sutures were then cut with an arthroscopic suture cutter and subsequently evaluated the rotator cuff repair.? Repair was found to be satisfactory?shoulder?was taken through range of motion and the repair moved as a unit with no evidence of loss of fixation. ?I then switched the arthroscope to the lateral portal to confirm this tension- free repair.? I took the?shoulder?through range of motion and the rotator cuff repair was stable and moved as a unit. ?Next I then introduced the arthroscopic shaver posteriorly to complete my subacromial decompression appropriate complaining all the way up to the lateral edge of the acromion.? This completed the surgery.? All fluid was suctioned from the?shoulder.? All instruments were removed.? The lateral incision was then closed with nylon stitches.? As well as the portal sites closed with portal nylon stitches.? Xeroform 4 x 4's ABD and tape was then applied to the Left?shoulder?and was placed into a?shoulder?abduction pillow sling for rotator cuff repair.? Patient was then awakened from anesthesia and then taken back to PACU in stable condition.? Patient tolerated procedure without any issues. Disposition: Patient taken back in stable condition recovering well.? Dressings on in place clean dry and intact.? Will be nonweightbearing to the Left upper extremity.? Follow rotator cuff repair protocol.? Patient to follow-up with me in the office in 2 weeks.? Patient will receive appropriate discharge instruction as well as pain medication postoperatively.? All questions answered.? We will contact the office for any questions or concerns.
== END 2024-09-20 23:42 | disposition home or self-care (01) ==
PROVIDERS: PCP Nurse Practitioner; Visit Provider Student in an Organized Health Care Education/Training Program
PROC: (CPT 29826; 2024-09-20 15:10)
PROC: 0LQ24ZZ Repair Left Shoulder Tendon, Percutaneous Endoscopic Approach (ICD-10-PCS; CPT 29827; 2024-09-20 15:10)
PROC: (CPT 23430; 2024-09-20 15:10)
PROC: (CPT 29805; 2024-09-20 15:10)
DX: M19.012 Primary osteoarthritis, left shoulder (principal); M75.102 Unspecified rotator cuff tear or rupture of left shoulder, not specified as traumatic; M75.22 Bicipital tendinitis, left shoulder; I10 Essential (primary) hypertension
CPT/HCPCS: 29827; 29824; 29826; 29828; C1713; J0131; J0171; J0330; J0690; J1100; J1885; J2250; J2405; J2704; J2710; J2795; J3010; J3490; J7030

== ENCOUNTER 2024-11-04 06:00 | Outpatient (RCR) | payer OTHER, SELFPAY | END 2024-12-01 23:59 | disposition home or self-care (01) | LOC: WPT 06:00 | PROVIDERS: Visit Provider Physician Assistant | DX: Z98.890 Other specified postprocedural states (principal) | CPT/HCPCS: 97110; 97112; 97161; 97530 ==

== ENCOUNTER 2024-12-02 06:30 | Outpatient (RCR) | payer OTHER, SELFPAY | END 2025-01-01 23:59 | disposition home or self-care (01) | LOC: WPT 06:30 | PROVIDERS: Visit Provider Physician Assistant | DX: Z98.890 Other specified postprocedural states (principal) | CPT/HCPCS: 97110; 97140; 97530 ==

== ENCOUNTER 2025-01-02 05:00 | Outpatient (RCR) | payer OTHER, SELFPAY | END 2025-01-31 23:59 | disposition home or self-care (01) | LOC: WPT 05:00 | PROVIDERS: Visit Provider Physician Assistant | DX: Z98.890 Other specified postprocedural states (principal) | CPT/HCPCS: 97110; 97112; 97530 ==